=== PATIENT | male | born 1950 | race Caucasian/White ===

== ENCOUNTER → 2018-05-22 14:18 | Outpatient (CLI) | payer OTHER, SELFPAY ==
[2018-05-22 16:48] LABS: AST(SGOT) 21 U/L (15-37); Alanine Aminotransfer ALT/SGPT 24 U/L (16-61); Albumin, Serum 3.6 g/dL (3.2-5.0); Alkaline Phosphatase 55 U/L (45-117); Anion Gap 7 (5-15); BUN 8 mg/dL (7-18); Calcium,Total 8.7 mg/dL (8.5-10.1); Chloride 108 mmol/L (98-107); Creatinine, Serum 0.88 mg/dL (0.70-1.30); EST Glomerular Filtration Rate 91 mL/min (>60); Est Glom Filt Rate - Afr Amer 110 mL/min (>60); Globulin 3.5 g/dL (2.2-4.2); Glucose 100 mg/dL (74-106); Potassium 3.9 mmol/L (3.5-5.1); Protein, Total 7.1 g/dL (6.4-8.2); Sodium Level 145 mmol/L (136-145)
== END ==
PROVIDERS: Family Provider Family Medicine; PCP Family Medicine; Visit Provider Family Medicine
DX: Z00.00 Encounter for general adult medical examination without abnormal findings (principal); I10 Essential (primary) hypertension; D64.9 Anemia, unspecified; Z12.5 Encounter for screening for malignant neoplasm of prostate; R73.02 Impaired glucose tolerance (oral); D72.819 Decreased white blood cell count, unspecified; E53.8 Deficiency of other specified B group vitamins; R10.31 Right lower quadrant pain; C15.9 Malignant neoplasm of esophagus, unspecified
CPT/HCPCS: 36415; 80053

== ENCOUNTER → 2018-05-23 14:38 | Outpatient (CLI) | payer OTHER, SELFPAY ==
--- NOTE | 2018-05-23 14:45 | CT_ITS ---
STUDY: CT ABDOMEN AND PELVIS WITH CONTRAST REASON FOR EXAM: Male, 67 years old. Epigastric pain 2 months. History of esophageal cancer with chemotherapy and radiation therapy. History of hernia repair. History of partial esophagectomy and left thyroidectomy. RADIATION DOSAGE (If Supplied By Facility): CTDIvol = ( 16.57 ) mGy, DLP = ( 1534.30 ) mGycm TECHNIQUE: Transaxial images were obtained from the dome of the diaphragm to the symphysis pubis with oral contrast. 100CC ml of Isovue 300 contrast was administered. Sagittal and coronal images were reconstructed. Individualized dose optimization techniques were used for this CT. COMPARISON: CT abdomen and pelvis 01/28/2017 FINDINGS: Body wall soft tissues: Fat filled right internal hernia. Stable. Osseous structures: No acute process. Inferior chest: Scarring and atelectasis at the left lung base with elevated left hemidiaphragm. Right lung base normal. Gastroesophageal pull-through versus large hiatal hernia. No cardiomegaly. Hepatobiliary: Hepatic steatosis. Otherwise unremarkable. Pancreas: Moderate pancreatic atrophy. Spleen: Normal. Adrenal glands: Normal. Urogenital: Benign right renal cyst. Otherwise normal kidneys, collecting systems, ureters, urinary bladder, prostate and seminal vesicles. Pelvic floor and sidewalls and retroperitoneum: There is induration along the right pelvic sidewall that appears to be extraperitoneal, of uncertain significance. Normal appearance of the adjacent iliac vessels. No lymphadenopathy. Above this, the appendix is normal. These features were not apparent on prior imaging of 01/28/2017. Left pelvic sidewall unremarkable. There are multiple small periaortic lymph nodes that are stable. There is a new cluster of enlarged lymph nodes aortocaval, just below the diaphragmatic patrica, the greatest dimension approximately 3.4 cm craniocaudal, 4.2 cm anterior-posterior, and 2.3 cm transverse. This is probably a cluster of 3 intimately adjacent lymph nodes, and this is suspicious for metastatic disease. Vasculature: Moderate atherosclerosis. Stomach: No acute gastric process. Small bowel and mesentery: There are numerous small lymph nodes in the root of the small bowel mesentery not substantially changed compared to prior imaging. The small bowel itself is unremarkable. Orally administered contrast has traversed the entirety of the small bowel into the large bowel. Large bowel: Normal appendix. There is circumferential mild thickening of the wall of the distal transverse colon, splenic flexure and descending colon, sigmoid and rectum, with low-density fatty infiltration the wall, and creeping fat surrounding sigmoid and rectum. These features are most consistent with chronic sequela from prior colitis without convincing acute induration in the surrounding fat that would suggest acute colitis or diverticulitis. Free fluid or free air: None. CT/Abdomen/Pelvis WITH Contrast IMPRESSION: Enlarged lymph nodes are present aortocaval just below the right-sided diaphragmatic patrica that were not present on the prior study dated 2016 and that may reflect metastatic disease. Additional small periaortic lymph nodes are present, slightly more numerous than seen on prior imaging. There is inflammatory induration extraperitoneal on the right pelvic sidewall that is not associated with any enlarged lymph nodes, of uncertain significance, perhaps reflecting lymphatic congestion which could be a manifestation of metastatic disease. There is evidence of prior colitis without convincing features of acute colitis or diverticulitis at this time. The absence of acute inflammatory induration in the fat surrounding the abnormal large bowel does not completely exclude the possibility of low-grade simmering colitis or low-grade simmering sigmoid diverticulitis. Low-grade inflammation may remain occult to CT imaging. Electronically Signed: Patrice Messer, at 18:05 EDT Tel , Service support ,
== END ==
PROVIDERS: Family Provider Family Medicine; PCP Family Medicine; Visit Provider Family Medicine
DX: R10.31 Right lower quadrant pain (principal); Z85.01 Personal history of malignant neoplasm of esophagus
CPT/HCPCS: 74177; Q9967

== ENCOUNTER → 2018-06-04 10:25 | Outpatient (CLI) | payer OTHER, SELFPAY ==
--- NOTE | 2018-06-04 09:00 | PET_ITS ---
EXAMINATION: FDG PET CT INDICATIONS: A 67-year-old male with reported history of esophageal carcinoma presenting for restaging examination. COMPARISON EXAMINATION: CT of the abdomen and pelvis report dated 05/23/18. INDEX LESION SIZE SUV INTERPRETATION Right adrenal gland 5.2 Fulfills quantitative criteria for viable neoplasm Mid to lower abdominal, upper pelvic retroperitoneum, 27.4 mm x 36.7 mm largest (frame 152) 6.0 (max) Fulfills quantitative criteria for viable neoplasm Bilateral-lateral neck, left supraclavicular region 15.8 mm x 22.1 mm largest (frame 248) 6.1 (max) Fulfills quantitative criteria for viable neoplasm TECHNIQUE: Following the intravenous administration of 14.41 mCi of F-18 deoxyglucose via the right hand, multiplanar image acquisitions of the neck, chest, abdomen and pelvis to level of mid thigh, obtained at one hour post radiopharmaceutical administration contemporaneously interpreted with the current CT of the neck, chest, abdomen and pelvis to level of mid thigh, dated 06/04/[address] of the abdomen and pelvis report dated 05/23/18 reveal: SERUM GLUCOSE LEVEL: 96 mg/dl. HEIGHT: 75 inches. WEIGHT: 250 lbs. FINDINGS: 1. Asymmetric increased radiopharmaceutical concentration is defined in the right upper abdomen, which appears contiguous to the right adrenal gland. The calculated maximum standard uptake value is 5.2. 2. Multifocal increased FDG uptake extends from the mid to lower abdominal, upper pelvic retroperitoneum corresponding to soft tissue lymph nodes, adenopathy. The calculated maximum standard uptake value is 6.0. The maximal axial diameter of the largest individual hypermetabolic soft tissue density on review of CT of the abdomen dated 06/04/18 is 27.4 mm (transverse) x 36.7 mm (AP). 3. There is an increase in glucose metabolism observed in the bilateral-lateral neck involving level III and left supraclavicular lymph node distributions. The calculated maximum standard uptake value is 6.1. The maximal axial diameter of the largest individual hypermetabolic soft tissue density on review of CT of the neck dated 06/04/18 is 15.8 mm (transverse) x 22.1 mm (AP). 4. Normal physiologic distribution of the radiopharmaceutical is apparent in the hepatic (3.0) and splenic parenchyma, both renal units, bladder and visualized intestinal tract. There is symmetric and preserved glucose metabolism noted in the visualized portion of the frontal, occipital, temporal and parietal lobes of the cerebral cortex, as well as cerebral hemispheres and basal ganglia. Diffuse intestinal tract activity is noted throughout all four quadrants of the abdominal-pelvic retroperitoneum, mesentery consistent with normal physiologic distribution of the radiopharmaceutical. There is an increase in glucose concentration observed in the descending thoracic, as well as abdominal aorta. A photopenic abnormality is noted in the right upper abdomen associated with exophytic cyst formation within the right renal unit. Pertinent CT findings are as follows. CHEST: Atherosclerotic calcification is defined in the thoracic aorta without evidence of dilatation, aneurysm formation. Coronary arterial calcification is observed. There is evidence of apparent previous gastric pull-through procedure. Postsurgical changes, surgical clips are noted in the mediastinum and upper abdomen. Right-left axillary soft tissue densities with fatty hilus formation are ametabolic. There are no parenchymal densities-nodules noted in the right-left hemithorax demonstrating discernible, quantitatively significant enhanced glucose metabolism. ABDOMEN AND PELVIS: There is fatty metamorphosis involving the hepatic parenchyma. Exophytic cyst formation is demonstrated in the right kidney as previously described demonstrating a maximal axial diameter 7.5 cm (AP). Atherosclerotic calcification is defined in the abdominal aorta without evidence of dilatation, aneurysm formation. Abdominal-pelvic arterial calcification is observed. Colonic diverticulosis is defined. A large fat-containing right inguinal hernia is noted. Right-left inguinal soft tissue densities are non-glucose avid. Dystrophic calcification is manifest within the prostate gland without evidence of enhanced FDG uptake. SKELETAL: Degenerative changes defined in the cervical, thoracic and lumbar spine demonstrate no evidence for glucose hypermetabolism. PET/PET/CT Tumor Base -Thigh Subs IMPRESSION: 1. ABNORMAL EXAMINATION INDICATIVE OF MALIGNANT VIABLE NEOPLASM. 2. Increased fluorine labeled glucose uptake demonstrated in the right upper abdomen, right adrenal gland fulfills quantitative criteria for viable neoplasm. (Michelle and Hayleyer, Journal of Nuclear Medicine 42:151 P 2002. Shana, Journal of Nuclear Medicine 45:1340, 2004). 3. Enhanced glucose metabolism noted in the mid to lower abdominal retroperitoneum and bilateral upper hemipelvis fulfills quantitative criteria for viable neoplasm. 4. Facilitated radiotracer concentration observed in the bilateral-lateral neck and left supraclavicular region fulfills quantitative criteria for viable neoplasm with single-point technique. 5. Prominent glucose concentration observed in the descending thoracic, as well as abdominal aorta is commensurate with activated leukocytes associated with atherosclerotic plaque formation. (Ramona et al, Clinical Nuclear Medicine 29:93, 2004). Electronic Signature Patrice De La Rosa D.O. Electronically Signed: Patrice De La Rosa DO at 21:48 EDT Tel , Service support ,
== END ==
PROVIDERS: Family Provider Family Medicine; PCP Family Medicine; Visit Provider Internal Medicine Hematology & Oncology
DX: C15.5 Malignant neoplasm of lower third of esophagus (principal)
CPT/HCPCS: 78815; A9552; A4216

== ENCOUNTER → 2018-06-06 10:44 | Outpatient (CLI) | payer OTHER, SELFPAY ==
--- NOTE | 2018-06-06 10:50 | CT_ITS ---
STUDY: CT CHEST WITH CONTRAST REASON FOR EXAM: Male, 67 years old. Esophageal neoplasm, follow-up RADIATION DOSAGE (If Supplied By Facility): CTDIvol = ( 15.64 ) mGy, DLP = ( 694.41 ) mGycm TECHNIQUE: Transaxial imaging was performed following intravenous administration of 100 ml of Isovue 300 contrast material. Multiplanar coronal and sagittal images were reformatted. Individualized dose optimization techniques were used for this CT. COMPARISON: CT/PET from 06/04/[address] abdomen and pelvis from 05/23/2018 FINDINGS: There are interstitial fibrotic changes of the lungs. No pulmonary nodule or mass identified. Left hemidiaphragm is elevated. Left thyroid gland is at least partially removed. There is no demonstrated pleural abnormality. Normal heart and pericardium. There are calcifications of the coronary arteries. Operative changes compatible with gastric pull through/esophageal resection. Mildly enlarged subcarinal lymph node (station 7) measures 1 cm in short axis, stable. Enlarged lymph nodes in the left supraclavicular region measuring up to 1.5 cm correlate to PET positive lymph nodes evident on recent PET scan. Normal enhanced pulmonary arteries. There is atherosclerotic calcification of the aortic arch with tortuosity and elongation of the aortic arch and descending thoracic aorta. There are multi-level degenerative changes of the thoracic spine. Similar appearance of the upper abdomen as compared to recent PET/CT with adenopathy of the right posterior medial upper abdomen and right adrenal gland enlargement. The left adrenal gland is normal in size. Right renal cyst is noted. CT/Chest WITH Contrast IMPRESSION: 1. Since 06/04/2018 PET/CT, stable exam. No pulmonary nodule or mass. 2. Left supraclavicular adenopathy, right posteromedial upper abdomen adenopathy, nodular thickening of the right adrenal gland compatible with neoplasm/metastasis. 3. Stable 1 cm (short axis) station 7 subcarinal lymph node. 4. Gastric pull-through procedure/esophagectomy. Electronically Signed: Jerzy Lance MD at 17:06 EDT , Service support ,
== END ==
PROVIDERS: Family Provider Family Medicine; PCP Family Medicine; Visit Provider Internal Medicine Hematology & Oncology
DX: C15.5 Malignant neoplasm of lower third of esophagus (principal); C15.9 Malignant neoplasm of esophagus, unspecified
CPT/HCPCS: 71260; Q9967

== ENCOUNTER → 2018-06-14 07:41 | Outpatient (CLI) | payer OTHER, SELFPAY ==
[2018-06-14] VITALS (10 sets, daily range): BP systolic 118–167; BP diastolic 72–104; PULSE 62–87; RESP 16–23; TEMP 36.4; O2SAT 94–97; BMI 30.6
--- NOTE | 2018-06-14 | IMM_PTH ---
PATIENT: CRIS REED LOC: CT U#:[id number] AGE/SX: 75/M ROOM: RE06/14/[address]: Dr. Shravan Warner DO : 1950 BED: DIS: SPEC #: [id number] RECD: 06/15/18 14:52 STATUS: ROMAIN REQ #: [id number] GI: 06/14/18 00:[address]: Shravan Warner DEPT: IMMUNOHISTOCHEMISTRY RECD BY: Cindy Gutierrez ENTERED: 06/15/18 14:53 SP TYPE: IMMUNO OTHR DR: Dr. Kevin Benjamin MD Tissues: Retroperitoneum, NOS Procedures: CK20 (add) CK7 (add) ARNDT-2 (add) HER2 NEIL (add) P53 (add) FACTOR VIII (add) Pankeratin (initial) PHYSICIAN & INSTITUTION [place] [id number] SPECIMEN INFORMATION: Tissue Source: Right retroperitoneal mass Clinical Info: Right retroperitoneal mass Specimen Number: [id number] CPT code: 15216, 05116 x6 METHODOLOGY: Deparaffinized sections of prefer/formalin-fixed tissue or PAP/DQ stained slides are incubated with monoclonal/polyclonal antibodies/oligonucleotide probes. Localization is made via biotin free immunoperoxidase method. Appropriate controls are performed and reacted as expected. Results on target cell population are indicated in the following table: RESULTS: ANTIBODY / CLONE RESULT AE1-3 (AE1/AE3/PCK26) positive Factor VIII (R Ag) negative CK7 (OV-TL12/30) positive CK20 (KS20.8) negative P53 (DO-7) positive, weak ARNDT-2 (SP21) positive Her-2neu (CB11) negative These tests were developed and their performance characteristics determined by [facility]. They may not have been cleared or approved by the U.S. Food and Drug Administration. The FDA has determined that such clearance or approval is not necessary. INTERPRETATION: Right retroperitoneal mass, CT-guided biopsy: Consistent with a few malignant cells present consistent with metastatic adenocarcinoma. SJ:saw 06/22/18 Comment: Case discussed with Dr. Warner on 06/20/18. Case has been reviewed in consultation with Dr. Song who concurs with the above diagnosis. IDC:AM
--- NOTE | 2018-06-14 | ASPIGT_PTH ---
PATIENT: CRIS REED LOC: CT U#:[id number] AGE/SX: 75/M ROOM: RE06/14/[address]: Dr. Shravan Warner DO : 1950 BED: DIS: SPEC #: [id number] RECD: 06/14/18 10:11 STATUS: ROMAIN DONNELL #: [id number] GI: 06/14/18 00:[address]: Shravan Warner DEPT: SURGICAL PATHOLOGY RECD BY: Patrice Barrera ENTERED: 06/14/18 10:11 SP TYPE: ASP RAD OTHR DR: Dr. Kevin Benjamin MD Tissues: Retroperitoneum, NOS Procedures: FNA Specimen Adequacy Special Stain Group II Surgery Specimen Level IV Diff Quik Stain (control) Imprint (control) HEADER OPERATION: CT-guided retroperitoneal lymph node biopsy PRE-OP DIAGNOSIS: Esophageal CA, positive PET, right retroperitoneal mass TISSUE SUBMITTED: Right retroperitoneal mass 20g core x7 MICROSCOPIC DIAGNOSIS Right retroperitoneal mass, CT-guided needle core biopsy and crush prep smears: Positive for malignant cells consistent with adenocarcinoma. AM:saw 06/15/18 COMMENT The specimen is evaluated at the time of biopsy by Dr. Alonzo. Immediate Evaluation: Set #1 ? Skeletal muscle tissue and fibrous tissue. Set #2 ? Skeletal muscle tissue and fibrous tissue. Immunohistochemistry ([id number]) supports the above diagnosis and is consistent with metastatic adenocarcinoma. The specimen is minute and the study does not elucidate a specific primary. This case was discussed with Dr. Warner 06/20/18. Case has been reviewed in consultation with Dr. Alonzo who concurs with the above diagnosis. IDC:SJ MICROSCOPIC DESCRIPTION Slides are reviewed. GROSS DESCRIPTION Received in fixative is one container labeled with the patient's name and designated right retroperitoneal mass, CT-guided core biopsy. The specimen consists of multiple irregular fragments of light middleton soft tissue that in aggregate measure 1 x 0.1 x <0.1 cm. The specimen is totally submitted in one cassette. Four touch imprints were prepared at the time of core biopsy. A fragment of tissue is also saved in RPMI for possible flow studies. / MALICK:saw 06/14/18 TC:0 CPT: 31374, 02903, 49226
[2018-06-14 08:10] LABS: Prothrombin Time (Protime)PT. 12.8 SECONDS (11.7-14.9)
== END ==
PROVIDERS: Family Provider Family Medicine; PCP Family Medicine; Visit Provider Internal Medicine Hematology & Oncology
DX: C15.9 Malignant neoplasm of esophagus, unspecified (principal)
CPT/HCPCS: 49180; 36415; 77012; 85610; 88172; 88305; 88313; 88341; 88342; 99156; 99157; J7040; A4216

== ENCOUNTER 2018-06-27 09:02 | Day surgery (SDC) | payer OTHER, SELFPAY ==
[2018-06-27] VITALS (9 sets, daily range): BP systolic 118–144; BP diastolic 67–94; PULSE 65–80; RESP 16; TEMP 36.8–36.9; O2SAT 94–96; BMI 29.9
[2018-06-27 09:25] LABS: Hemoglobin 15.8 g/dl (13.0-16.5); Mean Corp Hgb Conc 33.6 g/gl (32-36); Mean Corpuscular Hgb 34.4 pg (27.0-32.0); Mean Corpuscular Volume 102.4 fL (80-94); Mean Platelet Vol. 9.5 fl (6.2-12.0); Platelet Count 168 K/mm3 (150-450); RBC Distribution Width CV 12.7 % (11.6-14.6); RBC Distribution Width SD 47.8 fl (35.1-43.9); Red Blood Count 4.59 M/mm3 (4.6-6.2); White Blood Count 4.5 K/mm3 (4.4-11.0)
[2018-06-27 09:35] LABS: Scan Indicated on CBC? Y/N NO
[2018-06-27 09:38] LABS: Anion Gap 8 (5-15); BUN 8 mg/dL (7-18); BUN/Creat Ratio 9.8 RATIO (10-20); Calcium,Total 8.8 mg/dL (8.5-10.1); Chloride 105 mmol/L (98-107); Creatinine, Serum 0.82 mg/dL (0.70-1.30); EST Glomerular Filtration Rate 100 mL/min (>60); Est Glom Filt Rate - Afr Amer 121 mL/min (>60); Estimated Creatinine Clearance 107.32 ml/min; Glucose 112 mg/dL (74-106); Potassium 4.3 mmol/L (3.5-5.1); Sodium Level 141 mmol/L (136-145)
[2018-06-27] MEDS: Cefazolin 2 GM in 0.9% Normal Saline 100 ML IV (10:46)
--- NOTE | 2018-06-27 10:46 | PCM.DC.POR ---
Discharge Diet: No Restrictions - Pain medication may cause nausea. You should typically eat light foods as you take your pain medication. Discharge Activity: Return to Normal Activity, May Shower - Leave the bandage on for 2-3 days. When you remove the bandage, leave the steri-strips intact until they fall off. Additional Dressing/Incision Instructions:: Leave the bandage on for 3 days. When you remove the opcite, leave the steri-strips intact for one additional week please. Allergies/Adverse Reactions: Allergies No Known Allergies Allergy (Verified 06/26/18 16:01) Medications to take at Discharge ALPRAZolam [Xanax] 0.5 mg PO TID PRN PRN 09/17/15 Cyanocobalamin [Vitamin B12] 1,000 mcg PO DAILY@0800 09/17/15 Docusate Sodium [Colace] 200 mg PO DAILY 09/17/15 Escitalopram Oxalate [Lexapro] 10 mg PO DAILY 09/17/15 Magnesium Hydroxide [Milk Of Magnesia] 30 ml PO QHS PRN 09/17/15 Omeprazole [Prilosec] 20 mg PO BID 09/17/15 Ondansetron [Zofran] 8 mg PO Q8H PRN PRN 09/17/15 traZODone [Desyrel] 100 mg PO QHS 09/17/15 Ondansetron [Zofran Odt] 4 mg PO Q8H PRN PRN #10 tab 01/28/17 Oxycodone HCl/Acetaminophen [Percocet 7.5-325 mg Tablet] 1 tab PO Q6H PRN 01/28/17 Primary Care Physician: Kevin Benjamin MD [Primary Care Provider] - Test Results: Test results from this visit will be discussed in further detail at your follow-up appointment, if applicable. Please Follow Up With: Bruce Chen MD - [phone] When: If you have any difficulties please feel free to call the office
[2018-06-27] MEDS: Bupivacaine Mpf 0.5% 30 ML VIAL (11:15)
--- NOTE | 2018-06-27 11:32 | PCM.OPRPT ---
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 68-year-old gentleman was taken the operating. He underwent monitored anesthesia care. Ancef 2 g given intravenously preoperatively. The right neck and chest were sterilely prepped and draped. 1% lidocaine mixed 50-50 with 0.5% Marcaine was used as local anesthetic. A total of 18 cc was used. Under ultrasound guidance local was instilled. A micropuncture needle was inserted the right internal jugular vein. Wire was advanced fluoroscopy demonstrated positioning. Local was instilled down upon the right chest wall. Transverse incision was created using electrocautery subtenons pocket was created. The tubing was tunneled from the neck to the chest site. The micropuncture sheath dilator was placed over the wire. The wire and dilator were removed. #3 5 J-wire was inserted. Micropuncture sheath was removed. The 6 Iraqi PowerPort sheath dilator was inserted as a unit. The dilator wire removed. The catheter was advanced to the sheath. The sheath was split. The catheter was positioned at the SVC atrial junction. It was amputated to length connected to the port and secured there with a port attachment device. The port was placed within the pocket and secured there with interrupted 2-0 silk sutures. The skin edges approximated up to 3-0 Vicryl subdermal stitches. The neck was closed with interrupted 5-0 Vicryl subdermal stitches. Steri-Strips Telfa OpSite dressings applied. Sponge and instrument and needle counts were reported the surgeon be correct. Blood loss was quite minimal. The port was accessed it aspirated and flushed easily with saline and was flushed with 2 cc of heparinized saline. He was subsequently taken to the recovery room in satisfactory condition. Stat portable chest x-ray is pending. Specimens none. Drains none. Blood loss minimal Bruce Chen M.D., F.A.C.S. PowerPort reference #[id number] with a lot number [id number] for an expiry date 01/28/2020 Type of Anesthesia:: Local MAC Anesthesiologist: Korey Guzman
== END 2018-06-27 13:01 | disposition home or self-care (01) ==
LOC: SDC 09:02 → AC 09:03
PROVIDERS: Family Provider Family Medicine; PCP Family Medicine; Visit Provider Surgery
PROC: (CPT 36571; principal; 2018-06-27 11:15)
DX: C15.9 Malignant neoplasm of esophagus, unspecified (principal); C77.1 Secondary and unspecified malignant neoplasm of intrathoracic lymph nodes; Z45.2 Encounter for adjustment and management of vascular access device; K21.9 Gastro-esophageal reflux disease without esophagitis; F41.9 Anxiety disorder, unspecified; F32.9 Major depressive disorder, single episode, unspecified; Z79.891 Long term (current) use of opiate analgesic; Z79.899 Other long term (current) drug therapy; Z87.891 Personal history of nicotine dependence; Z85.850 Personal history of malignant neoplasm of thyroid
CPT/HCPCS: 36571; 36415; 71045; 77001; 80048; 85027; 93005; J7120; C1788

== ENCOUNTER → 2018-09-18 11:21 | Outpatient (CLI) | payer OTHER, SELFPAY ==
[2018-06-27 09:23] VITALS: BMI 29.9
[2018-09-18 11:49] LABS: Absolute Neutrophil Count 2.2 X10^3/uL (2.0-7.7); Basophil# 0.02 X10^3/uL; Basophil% 0.6 % (0-1); Eosinophil# 0.08 X10^3/uL; Eosinophils% 2.2 % (0-5); Hematocrit 38.2 % (40-54); Hemoglobin 12.5 g/dl (13.0-16.5); Lymphocyte % 19.6 % (19-41); Mean Corp Hgb Conc 32.7 g/gl (32-36); Mean Platelet Vol. 9.7 fl (6.2-12.0); Monocyte# 0.58 X10^3/uL; Monocyte% 16.2 % (0-10); Neutrophil # 2.19 X10^3/uL (2.7-7.7); Neutrophil % 61.4 % (47-70); POSITIVE COUNT NO; POSITIVE DIFFERENTIAL NO; POSITIVE MORPHOLOGY NO; Platelet Count 124 K/mm3 (150-450); RBC Distribution Width CV 15.3 % (11.6-14.6); RBC Distribution Width SD 58.1 fl (35.1-43.9); Red Blood Count 3.57 M/mm3 (4.6-6.2); White Blood Count 3.6 K/mm3 (4.4-11.0)
== END ==
PROVIDERS: PCP Family Medicine; Visit Provider Internal Medicine Hematology & Oncology
DX: C15.5 Malignant neoplasm of lower third of esophagus (principal)
CPT/HCPCS: 85025

== ENCOUNTER → 2018-10-26 08:21 | Outpatient (CLI) | payer OTHER, SELFPAY ==
--- NOTE | 2018-10-26 08:24 | RAD_ITS ---
CLINICAL HISTORY: Male, 68 years old. PROCEDURE: Double contrast upper GI and small bowel series. CONSENT: SEDATION: FLUOROSCOPY TIME (if supplied): (1:16) minutes/seconds TECHNIQUE: Patient swallowed barium without difficulty. There is pull through of the stomach to the chest due to esophageal resection, no evidence of obstruction the anastomosis apparently at the level of the manubrium, no obvious mucosal abnormality seen in the stomach, significant reflux noted while the patient is in prone position. The gastric antrum and duodenal bulb are below the level of the diaphragm, no deformity seen duodenal and the duodenal sweep is within normal limits. Barium was then followed through the small bowel. It reached the colon which took about 2 hours after the patient drank fluid and lunch. No obvious abnormality detected in the small bowel and in the visualized portion of the colon. RAD/Upper GI/w Small Bowel IMPRESSION: Evidence pull-through of the stomach into the chest with anastomosis at the level of the manubrium. Significant reflux noted during fluoroscopy. The rest of the examination is negative. Electronically Signed: Bryan Akers, at 16:41 EST Tel , Service support ,
== END ==
PROVIDERS: Family Provider Family Medicine; PCP Family Medicine; Referring Provider Internal Medicine Hematology & Oncology; Visit Provider Internal Medicine Hematology & Oncology
DX: C15.9 Malignant neoplasm of esophagus, unspecified (principal); R10.84 Generalized abdominal pain; R11.11 Vomiting without nausea
CPT/HCPCS: 74249

== ENCOUNTER 2018-11-05 10:11 | Day surgery (SDC) | payer OTHER, SELFPAY ==
[2018-10-29 13:26] VITALS: BMI 29.9
--- NOTE | 2018-11-05 | EGD_PTH ---
PATIENT: CRIS REED LOC: [facility] U#:[id number] AGE/SX: 68/M ROOM: RE11/05/[address]: Dr. Bruce Chen MD : 1950 BED: DIS: 11/05/2018 SPEC #: [id number] RECD: 11/05/18 11:43 STATUS: ROMAIN DONNELL #: [id number] GI: 11/05/18 00:[address]: Bruce Chen DEPT: SURGICAL PATHOLOGY RECD BY: Patrice Barrera ENTERED: 11/05/18 12:43 SP TYPE: EGD BIOPSY OTHR DR: Dr. Kevin Benjamin MD Tissues: A - Duodenum, NOS B - Gastric mucous membrane C - Stomach, NOS D - Esophageal mucous membrane E - COLON BIOPSY Procedures: Special Stain Group I Surgery Specimen Level IV GMS Stain (control) HEADER OPERATION: EGD ([facility] [place]) PRE-OP DIAGNOSIS: Intractable vomiting; history of metastatic adenocarcinoma of esophagus TISSUE SUBMITTED: A - Duodenal biopsy, B - Antral biopsy for H. pylori and pathology, C - Intrathoracic stomach biopsy, D - Mid esophageal biopsy, E - Anastomosis biopsy MICROSCOPIC DIAGNOSIS A. Duodenum, biopsy: Minimal nonspecific chronic inflammation. B. Gastric antrum, biopsy: Minimal chronic inflammation. See comment. C. Intrathoracic gastric mucosa, biopsy: Mild chronic inflammation. D. Mid esophagus, biopsy: Mild acute esophagitis and focal changes of reflux. Negative for fungal organisms. See comment. E. Anastomosis, biopsy: Gastric mucosa with mild acute gastritis and associated reactive change. AM:saw 11/06/18 COMMENT B. The results of immunohistochemistry for Helicobacter pylori will be reported separately ([id number]). D. GMS stain with matched control was used in the evaluation of this case. MICROSCOPIC DESCRIPTION Slides are reviewed. GROSS DESCRIPTION A - Received in fixative is one container labeled with the patient's name and designated duodenal biopsy. The specimen consists of one irregular fragment of light middleton soft tissue that measures 0.3 x 0.2 x 0.1 cm. The specimen is totally submitted in one cassette. B - Received in fixative is one container labeled with the patient's name and designated antral biopsy. The specimen consists of one irregular fragment of light middleton soft tissue that measures 0.3 x 0.2 x 0.1 cm. The specimen is totally submitted in one cassette. C - Received in fixative is one container labeled with the patient's name and designated intrathoracic stomach. The specimen consists of one irregular fragment of light middleton soft tissue that measures 0.5 x 0.2 x 0.1 cm. The specimen is totally submitted in one cassette. D - Received in fixative is one container labeled with the patient's name and designated esophageal biopsy. The specimen consists of one irregular fragment of light middleton soft tissue that measures 0.1 x 0.1 x <0.1 cm. The specimen is totally submitted in one cassette. E - Received in fixative is one container labeled with the patient's name and designated anastomosis biopsy. The specimen consists of one irregular fragment of light middleton soft tissue that measures 0.6 x 0.5 x 0.1 cm. The specimen is totally submitted in one cassette. / AM:saw 11/05/18 TC:2 CPT: 66233 x5, 66659
[2018-11-05 10:36] VITALS: BP 134/80; PULSE 57; RESP 16; TEMP 36.8; O2SAT 98; BMI 29.1
[2018-11-05 11:28] VITALS: BP 128/84; BP 134/80; PULSE 62; RESP 16; TEMP 36.4; O2SAT 98
--- NOTE | 2018-11-05 11:30 | OP.ENDO_ITS ---
Patient Name: Elliot Mitchell Procedure Date: 11/05/2018 10:56 AM Date of : 1950 Age: 68 Procedure: Upper GI endoscopy Indications: Esophageal reflux Providers: Bruce Chen MD Referring MD: Bruce Chen MD Medicines: See the Anesthesia note for documentation of the administered medications Patient Profile: Previously obtained barium swallow showed a herniation in the stomach. Complications: No immediate complications. Procedure: Pre-Anesthesia Assessment: - Prior to the procedure, a History and Physical was performed, and patient medications and allergies were reviewed. The patient's tolerance of previous anesthesia was also reviewed. The risks and benefits of the procedure and the sedation options and risks were discussed with the patient. All questions were answered, and informed consent was obtained. Prior Anticoagulants: The patient has taken no previous anticoagulant or antiplatelet agents. ASA Grade Assessment: III - A patient with severe systemic disease. After reviewing the risks and benefits, the patient was deemed in satisfactory condition to undergo the procedure. After obtaining informed consent, the endoscope was passed under direct vision. Throughout the procedure, the patient's blood pressure, pulse, and oxygen saturations were monitored continuously. The gastroscope was introduced through the mouth, and advanced to the third part of duodenum. The upper GI endoscopy was accomplished without difficulty. The patient tolerated the procedure well. Scope In: 11:13:40 AM Scope Out: 11:19:27 AM Total Procedure Duration Time 0 hours 5 minutes 47 seconds Findings: LA Grade A (one or more mucosal breaks less than 5 mm, not extending between tops of 2 mucosal folds) esophagitis with no bleeding was found in the middle third of the esophagus. Biopsies were taken with a cold forceps for histology. Esophagogastric anastomosis in mid chest identified. Biopsies obtained of the anastomosis An esophago-gastric anastomosis was found in the middle third of the esophagus. Biopsies were taken with a cold forceps for histology. Diffuse moderate inflammation was found in the entire examined stomach. Biopsies were taken with a cold forceps for histology of the intrathoracic stomach and of the gastric antrum. Bile noted to be refluxing into the stomach and intra thoracic stomach and esophagus Diffuse mildly erythematous mucosa without active bleeding and with no stigmata of bleeding was found in the duodenal bulb and in the first portion of the duodenum. Biopsies were taken with a cold forceps for histology. Impression: - LA Grade A reflux esophagitis. Biopsied. - An esophago-gastric anastomosis was found. Biopsied. - Gastritis. Biopsied. - Erythematous duodenopathy. Biopsied. Recommendation: - Discharge patient to home. - Resume previous diet. - Continue present medications. Procedure Code(s): --- Professional --- 08241, Esophagogastroduodenoscopy, flexible, transoral; with biopsy, single or multiple Diagnosis Code(s): --- Professional --- K21.0, Gastro-esophageal reflux disease with esophagitis Z98.890, Other specified postprocedural states K29.70, Gastritis, unspecified, without bleeding K31.89, Other diseases of stomach and duodenum CPT copyright 2017 [employer]. All rights reserved. The codes documented in this report are preliminary and upon bead worker sewing review may be revised to meet current compliance requirements. Bruce Chen MD 11/05/2018 11:30:12 AM This report has been signed electronically. Number of Addenda: 0 Note Initiated On: 11/05/2018 10:56 AM
[2018-11-05 11:35] VITALS: BP 134/80; BP 135/82; PULSE 59; RESP 16; O2SAT 100
[2018-11-05 11:40] VITALS: BP 134/80; BP 136/83; PULSE 56; RESP 16; O2SAT 99
[2018-11-05 11:45] VITALS: BP 134/80; BP 142/82; PULSE 54; RESP 16; TEMP 37; O2SAT 97
--- NOTE | 2018-11-05 12:00 | IMM_PTH ---
PATIENT: CRIS REED LOC: [facility] U#:[id number] AGE/SX: 68/M ROOM: RE11/05/[address]: Dr. Bruce Chen MD : 1950 BED: DIS: 11/05/2018 SPEC #: [id number] RECD: 11/06/18 09:22 STATUS: ROMAIN REDavid #: [id number] GI: 11/05/18 12:[address]: Bruce Chen DEPT: IMMUNOHISTOCHEMISTRY RECD BY: Cindy Gutierrez ENTERED: 11/06/18 09:23 SP TYPE: IMMUNO OTHR DR: Dr. Kevin Benjamin MD Tissues: B - Stomach, NOS Procedures: H Pylori (initial) PHYSICIAN & INSTITUTION [place] [id number] SPECIMEN INFORMATION: Tissue Source: B - Antral biopsy Clinical Info: Intractable vomiting; history metastatic adenocarcinoma of esophagus Specimen Number: [id number] CPT code: 19897 METHODOLOGY: Deparaffinized sections of prefer/formalin-fixed tissue or PAP/DQ stained slides are incubated with monoclonal/polyclonal antibodies/oligonucleotide probes. Localization is made via biotin free immunoperoxidase method. Appropriate controls are performed and reacted as expected. Results on target cell population are indicated in the following table: RESULTS: ANTIBODY / CLONE RESULT Block B H Pylori (polyclonal) negative These tests were developed and their performance characteristics determined by [facility]. They may not have been cleared or approved by the [place]. Food and Drug Administration. The FDA has determined that such clearance or approval is not necessary. INTERPRETATION: B. Antral biopsy: Negative for Helicobacter pylori organisms. AM:saw 11/06/18
[2018-11-05 12:04] VITALS: BP 134/80
== END 2018-11-05 12:06 | disposition home or self-care (01) ==
LOC: EN 10:19 → AC 10:19
PROVIDERS: Family Provider Family Medicine; PCP Family Medicine; Referring Provider Surgery; Visit Provider Surgery
PROC: 0DJ08ZZ Inspection of Upper Intestinal Tract, Via Natural or Artificial Opening Endoscopic (ICD-10-PCS; CPT 43235; principal; 2018-11-05 11:55)
DX: K21.0 Gastro-esophageal reflux disease with esophagitis (principal); K29.00 Acute gastritis without bleeding; K29.50 Unspecified chronic gastritis without bleeding; C15.9 Malignant neoplasm of esophagus, unspecified; C79.89 Secondary malignant neoplasm of other specified sites; I26.99 Other pulmonary embolism without acute cor pulmonale; F41.9 Anxiety disorder, unspecified; F32.9 Major depressive disorder, single episode, unspecified; I10 Essential (primary) hypertension; E66.9 Obesity, unspecified; Z68.29 Body mass index [BMI] 29.0-29.9, adult; Z87.891 Personal history of nicotine dependence; Z79.02 Long term (current) use of antithrombotics/antiplatelets; Z85.850 Personal history of malignant neoplasm of thyroid; Z85.89 Personal history of malignant neoplasm of other organs and systems; Z79.891 Long term (current) use of opiate analgesic; Z79.899 Other long term (current) drug therapy
CPT/HCPCS: 43239; 88305; 88312; 88342; J7120; A4216

== ENCOUNTER 2019-01-01 11:18 | Emergency (ER) | payer OTHER, SELFPAY ==
[2019-01-01 11:18] VITALS: BP 162/101; PULSE 61; RESP 21; TEMP 35.5; O2SAT 98; BMI 28.5
[2019-01-01 11:39] VITALS: BP 177/91; PULSE 68; RESP 15; O2SAT 97
[2019-01-01] MEDS: HYDROmorphone 1 MG/ML Syringe IV ×2 (12:34→13:31)
[2019-01-01] MEDS: Ondansetron 4 MG/2 ML Vial IV (12:34)
[2019-01-01] MEDS: 0.9% Normal Saline 1,000 ML 1000 ML IV (12:35)
[2019-01-01 12:37] VITALS: BP 184/105; PULSE 67; RESP 25; O2SAT 97
[2019-01-01 12:48] LABS: Absolute Neutrophil Count 1.5 X10^3/uL (2.0-7.7); Basophil# 0.01 X10^3/uL; Basophil% 0.5 % (0-1); Hemoglobin 12.7 g/dl (13.0-16.5); Lymphocyte % 14.7 % (19-41); Mean Corp Hgb Conc 32.6 g/gl (32-36); Mean Corpuscular Hgb 34.7 pg (27.0-32.0); Mean Corpuscular Volume 106.6 fL (80-94); Mean Platelet Vol. 9.7 fl (6.2-12.0); Monocyte# 0.23 X10^3/uL; Monocyte% 11.3 % (0-10); Neutrophil # 1.49 X10^3/uL (2.7-7.7); Platelet Count 208 K/mm3 (150-450); RBC Distribution Width CV 14.5 % (11.6-14.6); RBC Distribution Width SD 56.3 fl (35.1-43.9); Red Blood Count 3.66 M/mm3 (4.6-6.2)
--- NOTE | 2019-01-01 12:49 | ED.DCSUM_ITS ---
History of Present Illness Chief Complaint: Nausea/Vomiting Detail of Chief Complaint: Diaphoresis and abdominal pain Informant: Patient, Significant Other Onset: Today Context: Sudden Onset Timing: Continuous Quality: Achy Location: Right-sided Current Severity: Mild Maximum Severity: Moderate Worsened by: Attempt to eat or drink anything Relieved by: Nothing Associated Symptoms: Generalized weakness Narrative: Patient is a 68-year-old male with metastatic esophageal cancer who underwent resection with pull-through 4 years ago. He presents because of abdominal pain with nausea and vomiting. He reports soft stool. He denies blood or mucus in his stool. He denies blood or coffee-ground appearing emesis. He does have history of PE and on Xarelto. He does report shortness of breath with activity. He denies any type of chest discomfort. He does report feeling warm with subjective fever and cold sweats. He denies headache, visual, ocular auditory symptoms. Denies change in voice or difficulty swallowing. He denies any back or flank pain. He denies trauma or skin lesions. He has had swelling of his lower extremities. He states the swelling has diminished. Prior similar symptoms: Yes Recent Illness/Hospitalization: Yes Past Medical History - Allergies and Home Meds Allergies/Adverse Reactions: Allergies No Known Allergies Allergy (Verified 01/01/19 11:20) Primary Care Physician: Kevin Benjamin MD [Primary Care Provider] - Prior records reviewed: Yes Past Medical History: - - Metastatic esophageal cancer and depression Surgical History: - - Esophageal pull-through Smoking Status: Former smoker Review of Systems General: Reports: Chills, Malaise, Sweats, Weight loss. Denies: Fever, Subjective Eyes: Denies: Visual changes - bilaterally, Blurred Vision - bilaterally, Diplopia ENT: Denies: Bilateral ear pain, Rhinorrhea, Sore throat Cardiovascular: Denies: Chest pain, Palpitations, Heart racing Respiratory: Reports: Cough. Denies: Dyspnea, Sputum, Dyspnea on exertion, Orthopnea, Paroxysmal nocturnal dyspnea Gastrointestinal: Reports: Abdominal pain, Nausea, Vomiting. Denies: Diarrhea, Constipation, Melena, Hematochezia Genitourinary: Denies: Dysuria, Hematuria, Frequency Musculoskeletal: Reports: Swelling. Denies: Myalgias, Arthralgias, Back pain, Extremity Pain Skin: Denies: Rash Neurological: Reports: Weakness, Parasthesia. Denies: Headache Psych: Reports: Depression Hematologic: Denies: Easy bruising, Easy bleeding Allergy: Denies: Uticaria Physical Exam Vital Signs/Narrative: Vital Signs Temp Pulse Resp BP Pulse Ox 01/01/19 12:37 67 25 H 184/105 H 97 01/01/19 11:39 68 15 177/91 H 97 01/01/19 11:18 96 F L 61 21 H 162/101 H 98 Inital Vital Signs reviewed: Yes General: Well nourished, Well developed Head: Normocephalic, Atraumatic. Negative for: Trauma Eyes: Perrl, EOMI. Negative for: Pale conjunctiva, Scleral icterus ENT: No rhinorrhea, Dry mucous membranes Neck: Supple, Nontender, No lymphadenopathy, No JVD Cardiovascular: Regular rate, Regular rhythm, No murmurs, Normal S1, Normal S2 Respiratory: No distress, Rales - Posterior left lower lobe Abdomen: Soft, Nondistended, No masses, Tender, Hypoactive bowel sounds, Ventral hernia, Umbilical hernia Rectal: Deferred Back: Nontender, Normal Inspection. Negative for: CVA tenderness Extremities: Nontender, Edema - 1+ bilaterally Skin: No rash, Diaphoresis, Pallor Neurological: Alert, Oriented x3, Cranial nerves II-XII grossly intact, Normal Strength, Normal Sensation Psychological: Normal affect, Normal Mood Diagnostic/Tx/Re-eval Chest X-Ray - ED: 2 View, Read by ED Physician, Normal, Heart, Bony Structures, Left Effusion, - - Port noted right subclavian. Effusion is new from prior x- ray. There is evidence of atelectasis as well. White count is 2000 with 73% segs and 15% lymphocytes with no bands. Basic metabolic panel is unremarkable. Blood sugar is slightly elevated 165. Creatinine is 0.61. - Medical Decision Making The abdominal pain with nausea vomiting be secondary to chemo versus infectious cause versus obstruction. Will treat with Zofran and Dilaudid for pain and nausea. Baseline blood work was ordered. Patient was reassessed at he is no longer pale or diaphoretic. He states the nausea and vomiting is resolved. He reports feeling markedly better. ED Disposition - Plan for ED Patient: Disposition: Home or Assisted Living Diagnosis: Abdominal pain with vomiting, Mild dehydration, Chemotherapy induced neutropenia Instructions: ED Nausea Vomiting Referrals: Kevin Benjamin MD [Primary Care Provider] - As Needed Masci,Shravan, DO [STAFF PHYSICIAN] - 1-2 Days if not improving
[2019-01-01 12:54] LABS: Differential Indicated SCAN CRITERIA MET; POSITIVE COUNT NO; POSITIVE DIFFERENTIAL YES; POSITIVE MORPHOLOGY NO
--- NOTE | 2019-01-01 12:59 | RAD_ITS ---
STUDY: X-RAY CHEST REASON FOR EXAM: Male, 68 years old. Left lower lobe rales with cough and dyspnea. TECHNIQUE: PA and lateral views of the chest. COMPARISON: Comparison is made with prior examination dated June 27, 2018. FINDINGS: A right-sided dennis catheter seen with the tip in the midportion of the superior vena cava. EKG electrodes are seen. Stable pleural parenchymal changes at the left lung base. Surgical clips are seen in the left upper quadrant as well as in the left upper mediastinum. There is no demonstrated pleural abnormality. Normal size heart. Normal mediastinum and lv. Normal visualized pulmonary arteries. Normal visualized aortic arch and descending thoracic aorta. There are diffuse degenerative changes of the visualized thoracic spine. Normal visualized ribs, clavicles, and shoulders. The patient has a history of prior esophageal resection with gastric pull-through technique. RAD/Chest PA and Lateral IMPRESSION: Stable pleural parenchymal changes at the left lung base. Electronically Signed: Fidencio Fowler, at 13:35 EST , Service support ,
[2019-01-01 13:00] VITALS: BP 150/85; PULSE 61; RESP 18; O2SAT 98
[2019-01-01 13:03] LABS: ALB/GLOB Ratio 0.9 RATIO (0.9-2.4); AST(SGOT) 24 U/L (15-37); Alanine Aminotransfer ALT/SGPT 15 U/L (16-61); Albumin, Serum 3.3 g/dL (3.2-5.0); Alkaline Phosphatase 64 U/L (45-117); Anion Gap 9 (5-15); BUN 7 mg/dL (7-18); BUN/Creat Ratio 11.5 RATIO (10-20); Calcium,Total 8.2 mg/dL (8.5-10.1); Chloride 104 mmol/L (98-107); Creatinine, Serum 0.61 mg/dL (0.70-1.30); EST Glomerular Filtration Rate 140 mL/min (>60); Est Glom Filt Rate - Afr Amer 170 mL/min (>60); Estimated Creatinine Clearance 88.01 ml/min; Globulin 3.5 g/dL (2.2-4.2); Glucose 165 mg/dL (74-106); Potassium 3.6 mmol/L (3.5-5.1); Protein, Total 6.8 g/dL (6.4-8.2); Sodium Level 139 mmol/L (136-145)
[2019-01-01 13:28] LABS: Anisocytosis 1+; Red Cell Morphology N CHROM NORMAL (NORM C&C)
[2019-01-01] MEDS: Metoclopramide 10 MG/2 ML Vial 5 MG IV (13:31)
[2019-01-01 14:00] VITALS: BP 157/85; PULSE 68; RESP 17; O2SAT 98
[2019-01-01 14:49] VITALS: BP 138/74; PULSE 64; RESP 16; O2SAT 99
[2019-01-02 14:40] LABS: Pathologist Review Reviewed
== END 2019-01-01 14:50 | disposition home or self-care (01) ==
PROVIDERS: Emergency Provider Emergency Medicine; Family Provider Family Medicine; PCP Family Medicine
DX: R10.9 Unspecified abdominal pain (principal); E86.0 Dehydration; R11.2 Nausea with vomiting, unspecified; D70.1 Agranulocytosis secondary to cancer chemotherapy; T45.1X5A Adverse effect of antineoplastic and immunosuppressive drugs, initial encounter; C15.9 Malignant neoplasm of esophagus, unspecified; C79.9 Secondary malignant neoplasm of unspecified site; Z86.711 Personal history of pulmonary embolism; Z87.891 Personal history of nicotine dependence; Z79.02 Long term (current) use of antithrombotics/antiplatelets; Z79.891 Long term (current) use of opiate analgesic; Z79.899 Other long term (current) drug therapy
CPT/HCPCS: 71046; 80053; 85025; 96361; 96374; 96375; 96376; 99283; J7030; A4216; J2405

== ENCOUNTER → 2019-05-10 | Outpatient (CLI) | payer OTHER, SELFPAY ==
[2019-05-10 09:57] LABS: Cholesterol 150 mg/dL (200); High Density Lipoprotein 48 mg/dL; PSA,Total - Annual Screen 0.24 ng/mL (0.00-4.00); Triglycerides 92 mg/dL; Very Low Density Lipoprotein 18 mg/dL (5-40)
[2019-05-10 10:04] LABS: Hemoglobin A1c 5.8 % (4.2-6.3)
== END | disposition home or self-care (01) ==
PROVIDERS: Family Provider Family Medicine; PCP Family Medicine; Referring Provider Family Medicine; Visit Provider Family Medicine
DX: Z00.00 Encounter for general adult medical examination without abnormal findings (principal); I10 Essential (primary) hypertension; R73.02 Impaired glucose tolerance (oral); Z12.5 Encounter for screening for malignant neoplasm of prostate
CPT/HCPCS: 36415; 80061; 83036; 84153; G0103